=== PATIENT | female | born 1960 | race Caucasian/White ===

== ENCOUNTER → 2018-10-29 13:24 | Outpatient (CLI) | payer OTHER, SELFPAY ==
--- NOTE | 2018-10-29 | DI.MRI.S_ITS ---
PROCEDURE: MR TMJ WO CON INDICATIONS: JAW PAIN. Trismus. If internal derangement. TECHNIQUE: Axial T1 spin echo, coronal and sagittal PD fast spin echo through the temporomandibular joints, in both the closed- and open-mouth positions. COMPARISON: None. FINDINGS: Image quality: Excellent. Right: Joint is normally aligned on closed and open-mouth positioning. No significant bony erosions or osteophytes. On the closed mouth view, the right articular disc is abnormally located anteriorly, as on series 5 image 6. On the open-mouth view, the disc captures normally, however. Left: Joint is normally aligned on closed and open-mouth positioning. Articular disk demonstrates normal location and morphology. No bony erosions or osteophytes. IMPRESSION: Abnormally anteriorly located disc on the right side. Dictated by: John Schmid M.D. on 10/31/2018 at 9:28 Approved by: John Schmid M.D. on 10/31/2018 at 9:36
== END ==
PROVIDERS: Visit Provider Dentist Oral and Maxillofacial Surgery
DX: M26.69 Other specified disorders of temporomandibular joint (principal); R68.84 Jaw pain; R25.2 Cramp and spasm
CPT/HCPCS: 70336